=== PATIENT | male | born 1980 | race Caucasian/White ===

== ENCOUNTER 2020-10-23 12:56 | Emergency (ER) | payer MEDICAID, OTHER ==
[~2020-10-23] VITALS: Ht 180.3 cm; Wt 106.6 kg
[2020-10-23 13:01] VITALS: BP 156/96
--- NOTE | 2020-10-23 13:10 | NUR ---
BIB SELF C/O GENERALIZED RASH, JOINTS PAIN S/P PSORIASIS X 1 WEEK. PMH: PSORIASIS
--- NOTE | 2020-10-23 13:29 | NUR ---
Patient being evaluated by YAYA HEARD at [facility].
[2020-10-23] MEDS ORDERED: predniSONE 20 MG TAB PO ONE (13:35)
[2020-10-23] MEDS ORDERED: diphenhydrAMINE 50 MG CAP PO ONE (13:35)
[2020-10-23] MEDS ORDERED: NAPR-54 PO (14:01)
[2020-10-23] MEDS ORDERED: DIPH25TA53 PO (14:01)
[2020-10-23] MEDS ORDERED: PRED20TA5 PO (14:01)
[2020-10-23 14:35] VITALS: BP 156/96
--- NOTE | 2020-10-23 14:35 | NUR ---
Patient discharged with v/s stable. Written and verbal after care instructions given and explained. Patient alert, oriented and verbalized understanding of instructions. Ambulatory with steady gait. All questions addressed prior to discharge. ID band removed. Patient advised to follow up with PMD. Rx of Benadryl, naproxen, and prednisone was given. Patient educated on indication of medication including possible reaction and side effects. Opportunity to ask questions provided and answered.
== END 2020-10-23 14:35 | disposition home or self-care (01) ==
LOC: MED 12:56
DX: L40.9 Psoriasis, unspecified (principal); E11.9 Type 2 diabetes mellitus without complications; Z79.1 Long term (current) use of non-steroidal anti-inflammatories (NSAID); Z79.899 Other long term (current) drug therapy
CPT/HCPCS: 99283; J7512; Q0163

== ENCOUNTER 2021-08-14 14:56 | Emergency (ER) | payer MEDICAID ==
[~2021-08-14] VITALS: Ht 180.3 cm; Wt 101.6 kg
[~2021-08-14 14:56] MED LIST: DIPH25TA53 PO; NAPR-54 PO; PRED20TA5 PO
[2021-08-14 15:06] VITALS: BP 158/101
[2021-08-14] MEDS ORDERED: NAPR-1847 PO (15:32)
[2021-08-14] MEDS ORDERED: ACET-8386 PO ×2 (15:32→15:38)
[2021-08-14] MEDS: KETOROLAC 30 MG/ML VIAL IM ONE (15:38)
--- NOTE | 2021-08-14 15:43 | NUR ---
40/M PRESENTS TO ED WITH C/O JOINT PAIN X1 YEAR. PATIENT STATES HE IS IN PROCESS OF OBTAINING AN APPOINTMENT WITH AN IP ATTORNEY. PATIENT STATES PAIN HAS BEEN WORSENING IN THE PAST WEEK, REPORTS TAKING IBUPROFEN WITH MINOR RELIEF. PATIENT DENIES ANY OTHER MEDICAL COMPLAINT AT THIS TIME.
[2021-08-14 16:02] VITALS: BP 158/101
--- NOTE | 2021-08-14 16:03 | NUR ---
Patient discharged with v/s stable. Written and verbal after care instructions given and explained. Patient alert, oriented and verbalized understanding of instructions. Ambulatory with family to car. All questions addressed prior to discharge. ID band removed. Patient advised to follow up with PMD. Rx of norco, naproxen (sent) given. Patient educated on indication of medication including possible reaction and side effects. Opportunity to ask questions provided and answered.
== END 2021-08-14 16:02 | disposition home or self-care (01) ==
LOC: MED 14:56
DX: L40.52 Psoriatic arthritis mutilans (principal); Z98.890 Other specified postprocedural states
CPT/HCPCS: 96372; 99283; J1885

== ENCOUNTER 2021-09-30 14:27 | Emergency (ER) | payer MEDICAID ==
[~2021-09-30] VITALS: Ht 180.3 cm; Wt 106.6 kg
[~2021-09-30 14:27] MED LIST changes: +ACET-8386 PO; +NAPR-1847 PO
[2021-09-30 15:08] VITALS: BP 146/102
--- NOTE | 2021-09-30 16:00 | NUR ---
41 Y/O MALE BIB SELF C/O OF BODY ACHES, PT STATES THAT HE WAS DIAGNOSED WITH RA AND DOES NOT HAVE AN APPOINTMENT UNTIL . HERE IN THE ED FOR A SHOT OF STEROIDS AND A PRESCRIPTION NKA PMH: PSORIASIS, RA
--- NOTE | 2021-09-30 16:00 | NUR ---
YAYA PITTMAN AT PT SIDE FOR EVAL
[2021-09-30] MEDS ORDERED: DEXAMETHASONE 10 MG/ML VIAL IM ONE (16:05)
[2021-09-30] MEDS ORDERED: KETOROLAC 30 MG/ML VIAL IM ONE (16:05)
[2021-09-30] MEDS ORDERED: [UNRECOGNIZED DRUG - CODE] PO (16:05)
--- NOTE | 2021-09-30 16:29 | NUR ---
Patient discharged with v/s stable. Written and verbal after care instructions given and explained. Patient alert, oriented and verbalized understanding of instructions. Ambulatory with steady gait. All questions addressed prior to discharge. ID band removed. Patient advised to follow up with PMD. Rx of DICLOFENAC/MISOPROSTOL given. Patient educated on indication of medication including possible reaction and side effects. Opportunity to ask questions provided and answered.
== END 2021-09-30 16:29 | disposition home or self-care (01) ==
LOC: MED 14:27
DX: M06.9 Rheumatoid arthritis, unspecified (principal); Z76.0 Encounter for issue of repeat prescription
CPT/HCPCS: 29130; 96372; 99284; J1100; J1885

== ENCOUNTER 2022-11-09 02:35 | Emergency (ER) | payer MEDICAID ==
[~2022-11-09] VITALS: Ht 180.3 cm; Wt 102.1 kg
[~2022-11-09 02:35] MED LIST changes: -ACET-8386 PO; +ACET-8905 PO; +[UNRECOGNIZED DRUG - CODE] PO
[2022-11-09 02:40] VITALS: BP 153/90; PULSE 122; RESP 17; TEMP 98; O2SAT 95
[2022-11-09 02:46] VITALS: TEMP 98.1
[2022-11-09] MEDS ORDERED: EPINEPHrine 1 MG/ML AMP SUBQ ONE (03:05)
[2022-11-09] MEDS ORDERED: methylPREDNISolone SS 125 MG in WATER STERILE 2 ML IV ONE (03:05)
[2022-11-09] MEDS ORDERED: NACL 0.9% 1,000 ML IV ONE (03:05)
[2022-11-09] MEDS ORDERED: diphenhydrAMINE 50 MG/ML VIAL IVP ONE (03:05)
[2022-11-09 05:10] VITALS: BP 156/101
[2022-11-09] MEDS ORDERED: FEXO180T82 PO (05:32)
[2022-11-09] MEDS ORDERED: PRED20TA5 PO (05:32)
[2022-11-09 05:36] VITALS: PULSE 111; RESP 17; O2SAT 96
== END 2022-11-09 05:35 | disposition home or self-care (01) ==
LOC: MED 02:35
DX: L50.0 Allergic urticaria (principal); Z79.899 Other long term (current) drug therapy; Z98.890 Other specified postprocedural states
CPT/HCPCS: 96361; 96372; 96374; 99284; J0171; J1200; J7030